=== PATIENT | female | born 1980 | race Caucasian/White ===

== ENCOUNTER 2020-03-05 08:23 | Emergency (ER) | payer BC, SELFPAY ==
[2020-03-05 08:25] VITALS: BP 167/98; PULSE 94; RESP 16; TEMP 36.8; O2SAT 97
--- NOTE | 2020-03-05 08:56 | ECG_ITS ---
Measurements Intervals [place] Rate: 81 P: 39 DC: 151 QRS: 22 QRSD: 102 T: 77 QT: 369 QTc: 429 Interpretive Statements SINUS RHYTHM BORDERLINE ST-T WAVE ABNORMALITY- HIGH LATERAL LEADS BORDERLINE ECG Electronically Signed On 03-05-2020 9:45:08 CDT by Orion Rivera D.O.
--- NOTE | 2020-03-05 08:58 | ED.GENADULT ---
HPI - General Adult General Chief complaint: Upper Respiratory Infection Stated complaint: cough felt like going to pass out Source: patient Mode of arrival: ambulatory History of Present Illness HPI narrative: Irina is a 39F with a PMH of seasonal allergies, obesity and CHF (resolved after she lost 100lbs intentionally) that presented to the ED with an episode of near syncope. She was quarantined for COVID exposure starting about 16 days ago. She got of quarantine a few days ago. However, 2 days ago she started having a dry cough. (she gets this every year around harvest time). She was gaving a coughing spell then felt lightheaded and had an episode of near syncope. She did not lose conscousness. No CP, palpitations, SOB, nausea or vomiting. No hematochezia, melena, hematuria, vaginal bleeding or dysuria. Related Data Home Medications Medication Instructions Recorded Confirmed prednisone 20 mg PO DAILY 03/05/20 03/05/20 Allergies Allergy/AdvReac Type Severity Reaction Status Date / Time No Known Allergies Allergy Unknown Unverified 10/14/06 13:25 Review of Systems Constitutional: Constitutional: Reports no additional constitutional complaints, Denies chills and Denies fever(s) Eyes: Eyes: Reports no additional eye complaints ENT: Reports nasal congestion Cardiovascular: Cardiovascular: Reports as per HPI Respiratory: Respiratory: Reports cough, Denies dyspnea and Denies wheezing Gastrointestinal: Gastrointestinal: Reports no additional gastrointestinal complaints Genitourinary: Genitourinary: Reports no additional female genitourinary complaints Musculoskeletal: Musculoskeletal: Reports no additional musculoskeletal complaints Integumentary/Breasts: Skin/Breast: Reports system reviewed and no additional complaints, except as docu Neurologic: Denies vertigo, Denies syncope and Denies focal weakness Psychiatric: Psychiatric: Reports no additional psychiatric complaints Endocrine: Endocrine: Reports no additional endocrine complaints Hematologic/Lymphatic: Hematologic/Lymphatic: Reports no additional hematologic/lymphatic complaints Allergic/Immunologic: Allergic/Immunologic: Reports no additional allergic/immunologic complaints [facility] Family History Family History Father Diabetes mellitus Patient's father is in good health Acute myocardial infarction, Onset Age: 60 Mother Carcinoma of colon Social History Social History Smoking status: Never smoker Exam Const: General: no acute distress and alert Orientation/consciousness: patient oriented x3 Limitations: No altered mental status HENMT: Head: normal to inspection Eyes: Conjunctivae: conjunctivae normal Pupils: Equal, round and reactive pupils present Neck: Neck: normal visual inspection Chest: Chest palpation & inspection: normal inspection of the chest Resp: Effort & Inspection: normal respiratory effort, not labored, no retractions and not tachypneic Auscultation: clear to auscultation bilaterally Cardio: Rate: regular rate Rhythm: regular rhythm Heart sounds: no murmurs GI: GI Palp: Yes Soft to palpation, No Tenderness to palpation present (GI) and No Guarding due to palpation present (GI) Skin: General skin exam: normal color Rashes: no rashes Neuro: General: patient oriented x3 and moves all extremities Extrem: General: normal to inspection Psych: Mental Status: mental status grossly normal Course Course Emergency Course: Irina was evaluated. Orderd labs, ekg and orthostatics. Orthostatics were unremarkable. EKG showed NSR with a rate of 81, no ST elevation/depression. labs showed slight hypokalemia, slight leukopenia but were otherwise unremarkable. Vital Signs Vital signs: Vital Signs Temperature 98.3 F 03/05/20 08:25 Pulse Rate 94 03/05/20 08:25 Respiratory Rate 16 03/05/20 08
[2020-03-05 09:03] VITALS: BP 157/96; PULSE 87
[2020-03-05 09:04] VITALS: BP 149/99; PULSE 92
[2020-03-05 09:05] VITALS: BP 153/100; PULSE 105
[2020-03-05 09:14] LABS: Basophils Absolute Auto 0.02 K/mm3 (0.00-0.10); Basophils Percent Auto 0.5 % (0.0-1.0); Hematocrit 38.7 % (35.0-49.0); Hemoglobin 12.8 g/dL (12.0-15.0); Immature Granulocyte Absolute 0.01 K/mm3 (0.00-0.00); Immature Granulocyte Percent A 0.3 % (0.0-0.0); Lymphocytes Absolute Auto 0.85 K/mm3 (1.10-4.50); Lymphocytes Percent Auto 21.5 % (18.0-42.0); Mean Corpuscular HGB Conc 33.1 g/dL (32.0-36.0); Mean Corpuscular Hemoglobin 27.6 pg (27.0-31.0); Mean Corpuscular Volume 83.4 fL (78.0-102.0); Mean Platelet Volume 11.6 fl (9.2-11.8); Monocytes Absolute Auto 0.24 K/mm3 (0.10-0.90); Monocytes Percent Auto 6.1 % (2.0-11.0); Neutrophils Absolute Auto 2.8 K/mm3 (1.7-7.2); Neutrophils Percent Auto 71.6 % (50.0-70.0); Platelet Count Result 180 K/mm3 (150-420); Red Blood Count 4.64 M/mm3 (4.20-5.40); Red Cell Distribution Width 12.7 % (11.6-14.4)
[2020-03-05 09:34] LABS: BNP 65.2 pg/mL (0-100)
[2020-03-05 09:36] LABS: Alanine Aminotransferase 21 U/L (14-59); Albumin Level 3.2 g/dL (3.4-5.0); Alkaline Phosphatase 47 U/L (46-116); Anion Gap 9 mmol/L (8-16); Aspartate Amino Transferase 17 U/L (15-37); Bilirubin,Total 0.4 mg/dL (0.00-1.00); Blood Urea Nitrogen 20 mg/dL (7-18); Calcium 8.6 mg/dL (8.5-10.1); Carbon Dioxide 29 mmol/L (21-32); Chloride 103 mmol/L (98-108); Estimated CRCL calculation 94 ml/min; Estimated Glomerular Filt Rate > 60; Glucose 98 mg/dL (70-99); Osmolality Calculated 294 mOsm/kg (285-295); Potassium 3.1 mmol/L (3.5-5.1); Sodium 141 mmol/L (136-145); Total Protein 7.5 g/dL (6.4-8.2)
[2020-03-05 09:39] LABS: Troponin I < 0.02 ng/mL (0.00-0.056)
[2020-03-05 10:10] VITALS: BP 124/93; PULSE 72; RESP 20; TEMP 37.1; O2SAT 98
== END 2020-03-05 10:16 | disposition home or self-care (01) ==
PROVIDERS: Emergency Provider Family Medicine; PCP Nurse Practitioner Family
DX: R55 Syncope and collapse (principal)
CPT/HCPCS: 36415; 80053; 83880; 84484; 85025; 93005; 99283; 99284

== ENCOUNTER 2022-08-25 08:27 | Emergency (ER) | payer BC, SELFPAY ==
[2022-08-25] VITALS (25 sets, daily range): BP systolic 138–161; BP diastolic 86–113; PULSE 77–115; RESP 16–20; TEMP 36.3–37; O2SAT 92–100
--- NOTE | ~2022-08-25 | XR_ITS ---
EXAMINATION: XR chest 1V portable DATE: 08/25/2022 09:09 INDICATION: Palpitations. Dizziness. TECHNIQUE: A single frontal view of the chest was obtained. COMPARISON: None. FINDINGS: Sensitivity is decreased by obesity. The chest demonstrates clear lungs without pneumonia, pleural effusion, or pneumothorax. The heart size is normal. IMPRESSION: 1. No acute cardiopulmonary disease. Reviewed, dictated and finalized at location A.
--- NOTE | 2022-08-25 08:46 | ED.ARRPALP ---
HPI - Arrhythmia/Palpitations General Chief Complaint: Arrhythmia/Palpitations Stated Complaint: Dizziness Time Seen by Provider: 08/25/22 08:44 Source: patient Mode of arrival: ambulatory Limitations: no limitations History of Present Illness HPI narrative: 41-year-old female with a history of obesity, negative stress test in 2019 with an EF of 61%, recurrent syncope, anxiety presents to the ER with -- palpitation. She felt her heart was jumping out of her chest. -- Dizziness, which is worse on standing up. -- Nausea without any vomiting. -- Transient shortness of breath which has resolved. Patient has had prior episodes of palpitation and syncope. No chest pain. Her symptoms started this morning. MD complaint: rapid heart beat Onset (ago): hour(s) ( Started 3 hours ago.) Duration: constant Severity: moderate Context: occurred during rest Associated symptoms: shortness of breath, near-syncope, nausea and anxiety Related Data Home Medications Medication Instructions Recorded Confirmed No Home Medications 08/25/22 08/25/22 Allergies Allergy/AdvReac Type Severity Reaction Status Date / Time No Known Allergies Allergy Unknown Unverified 08/25/22 09:28 Review of Systems Review of Systems: All systems reviewed & are unremarkable except as noted in HPI and below Constitutional: Constitutional: Reports as per HPI and Reports no additional constitutional complaints Eyes: Eyes: Reports as per HPI and Reports no additional eye complaints ENT: Reports system reviewed and no additional complaints, except as documented and Reports as per HPI Cardiovascular: Cardiovascular: Reports as per HPI and Reports no additional cardiovascular complaints Comments: Palpitation Respiratory: Respiratory: Reports as per HPI, Reports no additional respiratory complaints and Reports dyspnea Gastrointestinal: Gastrointestinal: Reports as per HPI and Reports no additional gastrointestinal complaints Genitourinary: Genitourinary: Reports no additional female genitourinary complaints Comments: status post BTL Musculoskeletal: Musculoskeletal: Reports no additional musculoskeletal complaints Integumentary/Breasts: Skin/Breast: Reports system reviewed and no additional complaints, except as docu and Reports as per HPI Neurologic: Reports system reviewed and no additional complaints, except as documented and Reports as per HPI Comments: anxiety Psychiatric: Psychiatric: Reports no additional psychiatric complaints, Reports as per HPI and Reports anxiety Endocrine: Endocrine: Reports no additional endocrine complaints and Reports as per HPI Hematologic/Lymphatic: Hematologic/Lymphatic: Reports no additional hematologic/lymphatic complaints and Reports as per HPI Allergic/Immunologic: Allergic/Immunologic: Reports no additional allergic/immunologic complaints and Reports as per HPI [facility] Past Medical History Medical History Anxiety Family History Family History Father Diabetes mellitus Patient's father is in good health Acute myocardial infarction, Onset Age: 60 Mother Carcinoma of colon Social History Social History Smoking status: Never smoker Exam Narrative: patient is not orthostatic. Blood pressure and heart rate show wide fluctuations Const: General: no acute distress Nutritional Appearance: obese Orientation/consciousness: patient oriented x3 Limitations: no limitations HENMT: Head: normal to inspection Ears: external ears normal Face/Nose/Sinus: Normal external nose present Face and sinus: normal facial exam Mouth: Yes Normal oral and palatal mucosa present Throat: posterior oropharynx normal Eyes: Conjunctivae: conjunctivae normal Pupils: Equal, round and reactive pupils present EOM: EOMs intact bilaterally Direct
--- NOTE | 2022-08-25 08:53 | ECG_ITS ---
Measurements Intervals [place] Rate: 93 P: ID: 0 QRS: 13 QRSD: 103 T: 57 QT: 355 QTc: 442 Interpretive Statements ATRIAL FIBRILLATION ABNORMAL ECG COMPARED TO ECG 03/05/2020 09:18:22 ATRIAL FIBRILLATION NOW PRESENT Electronically Signed On 08-25-2022 13:58:21 CDT by Tony Lara M.D.
[2022-08-25] MEDS: ALPRAZolam (*CRX) 0.5 MG TABLET 0.25 MG PO (09:02)
[2022-08-25] MEDS: METOPROLOL TARTRATE INJ 5 MG/5 ML VIAL IV PUSH (09:19)
[2022-08-25 09:21] LABS: Basophils Absolute Auto 0.04 K/mm3 (0.00-0.10); Basophils Percent Auto 0.7 % (0.0-1.0); Eosinophils Absolute Auto 0.03 K/mm3 (0.02-0.50); Eosinophils Percent Auto 0.5 % (1.0-6.0); Hemoglobin 8.9 g/dL (12.0-15.0); Immature Granulocyte Absolute 0.01 K/mm3 (0.00-0.00); Immature Granulocyte Percent A 0.2 % (0.0-0.0); Lymphocytes Percent Auto 22.5 % (18.0-42.0); Mean Corpuscular HGB Conc 28.7 g/dL (32.0-36.0); Mean Corpuscular Hemoglobin 20.3 pg (27.0-31.0); Mean Corpuscular Volume 70.8 fL (78.0-102.0); Mean Platelet Volume 10.1 fl (9.2-11.8); Monocytes Absolute Auto 0.37 K/mm3 (0.10-0.90); Monocytes Percent Auto 6.4 % (2.0-11.0); Neutrophils Percent Auto 69.7 % (50.0-70.0); Platelet Count Result 365 K/mm3 (150-420); Red Blood Count 4.38 M/mm3 (4.20-5.40); Red Cell Distribution Width 17.5 % (11.6-14.4); White Blood Count 5.8 K/mm3 (4.8-10.8)
[2022-08-25 09:36] LABS: Partial Thromboplastin Time 29.3 SEC (23.90-30.70); Prothrombin Time 11.1 Seconds (9.50-12.10)
[2022-08-25 09:39] LABS: D Dimer 0.24 mg/L (0.19-0.50)
[2022-08-25 09:42] LABS: Lactic Acid Reflex 1.4 mmol/L (0.4-2.0)
[2022-08-25 09:49] LABS: Alanine Aminotransferase 17 U/L (14-59); Albumin Level 3.4 g/dL (3.4-5.0); Alkaline Phosphatase 66 U/L (46-116); Anion Gap 10 mmol/L (8-16); Aspartate Amino Transferase 18 U/L (15-37); Bilirubin,Total 0.3 mg/dL (0.00-1.00); Blood Urea Nitrogen 12 mg/dL (7-18); Calcium 8.8 mg/dL (8.5-10.1); Carbon Dioxide 27 mmol/L (21-32); Chloride 102 mmol/L (98-108); Estimated CRCL calculation 133 ml/min; Estimated Glomerular Filt Rate > 60; Glucose 103 mg/dL (70-99); NT Pro B Type Natriuretic Pept 614 pg/mL (0-125); Osmolality Calculated 287 mOsm/kg (285-295); Potassium 3.5 mmol/L (3.5-5.1); Sodium 139 mmol/L (136-145); Thyroid Stimulating Hormone 4.93 uIU/mL (0.36-3.74); Total Protein 8.1 g/dL (6.4-8.2); Troponin I 17.6 ng/L (0.00-60.4)
[2022-08-25 10:08] LABS: Appearance Urine Clear (Clear); Bilirubin Urine Negative (Negative); Blood Urine 3+ (Negative); Color Urine Light Yellow (Yellow); Glucose Urine UA Negative (Negative); Ketones Urine Negative (Negative); Leukocyte Esterase Ur Negative LEU/UL (Negative); Nitrate Urine Negative (Negative); Protein Urine Negative (Negative); Specific Grav Ur 1.015 (1.010-1.020)
[2022-08-25 10:13] LABS: Add Urine Microscopic? YES
[2022-08-25 10:14] LABS: Bacteria Urine Trace /hpf; RBC Urine 21-50 /hpf (0-2); Squamous Epithelial Cell Urine Few /hpf (Few)
--- NOTE | 2022-08-25 13:14 | PC.NURSE ---
On 08/25/22, the student, [orion [email or web address]], provided care and completed [facility] documentation on this patient. I have reviewed the student's documentation and agree with the findings.
== END 2022-08-25 13:15 | disposition short-term general hospital (02) ==
PROVIDERS: Emergency Provider Internal Medicine Critical Care Medicine; PCP Nurse Practitioner Family
DX: F41.9 Anxiety disorder, unspecified (principal); I48.91 Unspecified atrial fibrillation; D50.8 Other iron deficiency anemias; R06.02 Shortness of breath
CPT/HCPCS: 36415; 71045; 80053; 81001; 83605; 83880; 84443; 84484; 85025; 85380; 85610; 85730; 93005; 96374; 99285; A9270

== ENCOUNTER 2022-08-25 13:59 | Inpatient (IN) | payer BC, SELFPAY ==
--- NOTE | ~2022-08-25 | XR_ITS ---
EXAMINATION: XR small bowel follow through DATE: 08/27/2022 15:50 INDICATION: Iron deficiency anemia. TECHNIQUE: Oral contrast was administered, and a time course of radiographs of the abdomen was obtain ed. Fluoroscopy of the small bowel was performed. Fluoroscopy exposure time was 0.2 minutes. The tota l number of images was 8. COMPARISON: None. FINDINGS: There is no abnormal mass or stricture. There are no dilated loops of bowel. Transit time from the st omach to proximal colon was approximately 15 minutes. Surgical clips in the right upper quadrant are likely from cholecystectomy. IMPRESSION: 1. Normal small bowel series. Reviewed, dictated and finalized at location A.
--- NOTE | 2022-08-25 14:08 | ECHO_ITS ---
Patient Info Name: Irina Seymour Age: 41 years : 1980 Gender: Female Ht: 62 in Wt: 283 lbs BSA: 2.45 m2 HR: 71 bpm BP: 154 / 98 mmHg Heart Rhythm: Sinus Rhythm Technical Quality: Fair Exam Date: 08/25/2022 3:18 PM Exam Location: [facility] Pulmonary Patient Status: Outpatient Admit Date: 08/25/2022 Staff Ordering Physician: Shikha Gary PA-C Supervisor [employer]: Ese Fernandes RDCS Attending Provider: Renny Goncalves MD Referring Physician: Cookie JOHNSON; Exam Type: CA echo dop color flow w con Study Info Indications - new onset atrial fibrillation Complete two-dimensional, color flow and Doppler transthoracic echocardiogram is performed with contrast to opacify the left ventricle and to improve the deliniation of the left ventricle endocardial borders. Contrast/Agitated Saline Contrast/Ag. Saline: Definity Amount: 3.00 ml Administered By: Ese Fernandes RDCS Existing IV Access: Yes IV Access Condition: patent with no signs of infiltration Summary 1. Left ventricular chamber dimension is normal. 2. Definity contrast administered improved wall motion interpretation. 3. Left ventricular systolic function is normal, estimated at 65-70%. 4. There is moderately increased left ventricular wall thickness. 5. The left ventricular diastolic function is abnormal. 6. E/e' 13 is mildly elevated. 7. No pulmonary hypertension, estimated pulmonary arterial systolic pressure is 22 mmHg. Left Ventricle E/e' 13 is mildly elevated. Definity contrast administered improved wall motion interpretation. Left ventricular chamber dimension is normal. Left ventricular systolic function is normal, estimated at 65-70%. There is moderately increased left ventricular wall thickness. The left ventricular diastolic function is abnormal. Right Ventricle Right ventricular systolic function is normal and with normal TAPSE 2.7 cm. Right ventricular chamber dimension is normal. Left Atria Left atrial chamber dimension is normal. Right Atria Right atrial chamber dimension is normal. Aortic Valve The aortic valve is trileaflet. There is no aortic valve stenosis. There is no aortic valve regurgitation. Pulmonic Valve There is no pulmonic regurgitation. Mitral Valve There is no mitral valve stenosis. There is no mitral valve regurgitation. Tricuspid Valve There is no tricuspid valve regurgitation. No pulmonary hypertension, estimated pulmonary arterial systolic pressure is 22 mmHg. Pericardium/Pleural There is no pericardial effusion. Inferior Vena Cava Normal inferior vena cava with >50% collapse upon inspiration consistent with normal right atrial pressure, 5 mmHg. Aorta The aortic root size at the sinus of Valsalva is normal. Left Ventricular Outflow Tract Name Value Normal LVOT 2D LVOT Diameter 2.01 cm LVOT Doppler LVOT Peak Gradient 7 mmHg LVOT Mean Gradient 4 mmHg LVOT VTI 26.63 cm LVOT VTI/AV VTI Ratio 0.55
[2022-08-25 14:23] VITALS: BP 154/98; PULSE 71; RESP 20; TEMP 35.9; O2SAT 100
[2022-08-25 14:29] VITALS: BMI 51.9
--- NOTE | 2022-08-25 14:35 | ADMGEN ---
This patient, Irina Seymour, was admitted to 3 [facility] Surg Room 302-01. Patient/family oriented to hospital policies and general routines including ID bracelet, bed and alarms, visiting hours, pain management, procedures, bathroom and other care routines, personal items, smoking policy, room service/diet, and visiting hours. Information on how to activate the Rapid Response Team has been discussed. Patient/Family are encouraged to report perceived risks to care and to ask questions if they do not understand what they are told or what they should do. Pt direct admit from [facility]. Report from Deborah.
--- NOTE | 2022-08-25 15:00 | PM.CNCAR ---
Assessment and Plan Assessment and plan (1) PAF (paroxysmal atrial fibrillation): Code(s): I48.0 - Paroxysmal atrial fibrillation Status: Acute Assessment and Plan: Probably due to untreated JIA. Spontaneously cardioverted. [id number]. Negative lexiscan myovew on 10/26/18. Obtain echo. Start Sotalol 80 mg every 12 hours. Check EKG 1-2 hours after each dose of Sotalol to check QT interval. Start Aspirin 325 mg daily. Anticipate 2 night stay. (2) Microcytic anemia: Code(s): D50.9 - Iron deficiency anemia, unspecified Status: Acute Assessment and Plan: Being worked up by hospitalist. (3) Morbid obesity: Code(s): E66.01 - Morbid (severe) obesity due to excess calories Status: Acute History of Present Illness History of Present Illness Consult date/time: 08/25/22 15:00 Reason For Visit: new onset afib Narrative: 41 yr old woman presents to [facility] ER with rapid heart rate. She has a history of obesity s/p gastric sleeve surgery in 2019, anxiety. She reports she felt palpitations with associated sob, dizziness so she went to [facility] and was diagnosed with new onset atrial fib at 140 bpm. She was given Metoprolol which slowed it down to 110 bpm and subsequently she cardioverted. Currently her symptoms have resolved. She can walk several blocks without any problems. Admits to having JIA but thinks it may have resolved after gastric sleeve surgery and losing 130 pounds. Admits to snoring, and some daytime sleepiness. Denies chest pain, orthopnea, PND, edema. Review of Systems Review of Systems: All systems reviewed & are unremarkable except as noted in HPI and below Constitutional: Constitutional: Reports as per HPI, Denies chills and Denies fever(s) Cardiovascular: Cardiovascular: Reports as per HPI, Denies chest pain and Reports irregular heart rhythm Respiratory: Respiratory: Reports dyspnea Gastrointestinal: Gastrointestinal: Reports as per HPI and Denies abdominal pain Genitourinary: Genitourinary: Reports as per HPI and Denies dysuria Musculoskeletal: Musculoskeletal: Reports as per HPI Neurologic: Reports as per HPI, Reports dizziness and Denies syncope [facility] Past Medical History Medical History (Updated 08/25/22 @ 15:05 by Orion Rivera DO) Anxiety Essential hypertension Morbid obesity Obstructive sleep apnea on CPAP Surgical History Surgical History (Updated 08/25/22 @ 14:17 by Shikha Gary PA-C) History of section History of laparoscopic cholecystectomy (~09/2006) History of tubal ligation Family History Family History Father Diabetes mellitus Acute myocardial infarction, Onset Age: 60 Patient's father is in good health Mother Carcinoma of colon Hypertension Grandparent Afib Social History Social History (Updated 08/25/22 @ 14:18 by Shikha Gary PA-C) Social History: Surrogate medical decision maker: Xavier Seymour, spouse. Code status: Full code. Smoking status: Never smoker Alcohol intake: never Substance use: never Lack of Transportation: No Lack of Food: Never True Current Housing: I Have Housing Concerned About Future Housing: No Difficulty Paying Gas/Electric Bills: No Difficulty Paying for Meds: No Currently Unemployed: No Education: Associate Degree Difficulty w/ Childcare or Family Care: No Spiritual care concerns: No Meds Home Medications and Allergies Home Medications Medication Instructions Recorded Confirmed Type No Home Medications 08/25/22 08/25/22 History Allergies Allergy/AdvReac Type Severity Reaction Status Date / Time No Known Allergies Allergy Unknown Verified 08/25/22 14:50 Vital Signs Vital Signs - 24 hr 08/25/22 14:23 Temperature 96.7 F L Pulse Rate 71 Respiratory Rate 20 Blood Pressure 154/98 H Pulse Oximetry 100 Exam Const: General: cooperative, he
--- NOTE | 2022-08-25 15:08 | ECG_ITS ---
Measurements Intervals [place] Rate: 62 P: 9 [place]: 167 QRS: 7 QRSD: 102 T: 46 QT: 451 QTc: 459 Interpretive Statements SINUS RHYTHM COMPARED TO ECG 08/25/2022 09:03:29 SINUS RHYTHM NOW PRESENT Electronically Signed On 08-26-2022 10:40:38 CDT by Kelly Troy M.D.
[2022-08-25 15:23] VITALS: O2SAT 100
[2022-08-25 15:48] LABS: Immature Reticulocyte Fraction 17.3 % (3.0-15.9); Reticulocyte Hemoglobin Conten 21.9 pg (28.2-35.7); Reticulocyte Percent 1.39 % (0.7-4.3); Reticulocytes Absolute 0.06 B/L (32.2-175.7)
[2022-08-25 16:00] VITALS: PULSE 70
[2022-08-25] MEDS: PERFLUTREN LIPID MICROSPHERES 1.5 ML VIAL DILUTED TO 10 ML TOTAL VOLUME IV PUSH (16:10)
--- NOTE | 2022-08-25 16:36 | IVDEFINITY ---
Prior to administration of IV Definity the patient was educated on the risks and benefits of the imaging enhancing agent including potential adverse side effects. The patient verbalized understanding. Allergies were verified. No exclusion criteria were identified and at least one of the following inclusion criteria were met: 1) physician request, 2) patient technically difficult to image (per the [place] [employer] guidelines of two or more segments not discernable within the apical view), or 3) questionable left ventricular function. ?
[2022-08-25 17:17] LABS: Folic Acid 13.3 ng/mL (2.76->20)
[2022-08-25 17:27] LABS: Iron 16 ug/dL (37-170)
[2022-08-25 17:33] LABS: Percent Iron Saturation 4 % (20-50)
[2022-08-25 17:52] LABS: Free T4 Free Thyroxine 1.54 ng/mL (0.78-2.19)
[2022-08-25 18:18] LABS: Ferritin 4.34 ng/mL (6.24-137)
[2022-08-25 19:59] LABS: IFOB Positive Control Positive; Immunochemical Fecal Occult Bl Positive (N)
[2022-08-25 20:00] VITALS: PULSE 70; PULSE 75; RESP 20; O2SAT 100
[2022-08-25] MEDS: SOTALOL HCL 80 MG TABLET PO (21:05)
[2022-08-25 21:41] VITALS: BP 139/93; PULSE 81; RESP 16; TEMP 36.1; O2SAT 100
[2022-08-26] VITALS (12 sets, daily range): BP systolic 145–165; BP diastolic 87–96; PULSE 52–67; RESP 15–22; TEMP 36.1–36.7; O2SAT 95–100
[2022-08-26 06:35] LABS: Hemoglobin 8.8 g/dL (12.0-15.0); Mean Corpuscular HGB Conc 28.4 g/dl (32-36); Mean Corpuscular Hemoglobin 20.4 pg (26-34); Mean Corpuscular Volume 71.9 fl (80-100); Mean Platelet Volume 10.2 fl (7.4-10.4); Platelet Count Result 389 k/mm3 (150-375); Red Blood Count 4.31 M/mm3 (4.2-5.4); Red Cell Distribution Width 17.8 % (11.5-14.5); White Blood Count 5.2 K/mm3 (4.5-10.0)
[2022-08-26 06:45] LABS: Anion Gap 8 mmol/L (8-16); Blood Urea Nitrogen 14 mg/dL (7-17); Carbon Dioxide 27 mmol/L (22-30); Chloride 103 mmol/L (98-107); Estimated CRCL calculation 157 ml/min; Estimated Glomerular Filt Rate > 60; Glucose 96 mg/dL (65-110); Magnesium 2.3 mg/dL (1.6-2.3); Potassium 3.6 mmol/L (3.4-5.0); Sodium 138 mmol/L (137-145)
--- NOTE | 2022-08-26 07:26 | PM.IMPN ---
Progress Note: A&P Assessment and Plan (1) New onset atrial fibrillation: Code(s): I48.91 - Unspecified atrial fibrillation Status: Acute Assessment and Plan: Likely secondary to untreated JIA. She states she has not had any symptoms (no heavy snoring, paroxysmal nocturnal dyspnea, or hypersomnolence) since losing 150 lb following gastric sleeve in April 2019 nd has not been using her CPAP in the past year. NSR on telemetry. Continue to monitor telemetry. Cardiology consulted and appreciate recommendations. Sotalol 80 mg PO BID started on 08/25/20. Monitor QTc daily and 466 today 08/26/22 (was 459 on 08/25/22). CHADS-VASc score 1. ASA 325 mg PO daily started, however, this is on hold due to anemia and +FOBT. Will resume if GI work-up negative. (2) Microcytic anemia: Code(s): D50.9 - Iron deficiency anemia, unspecified Status: Acute Assessment and Plan: Patient denies heavy periods. history of gastric sleeve. Her mother had colorectal cancer at the age 40 without prior colonoscopy performed. No stool changed noted per patient. stool for occult positive. Repeat FOBT x1. Iron studies- serum iron, saturation and ferritin low, TIBC high normal. Started on ferrous sulfate 325 mg PO daily started. B12 233. start oral B12 1000 mcg. Secondary to GI surgery. folate within normal limits GI consulted and appreciate recommendations. Trend H/H (3) Essential hypertension: Code(s): I10 - Essential (primary) hypertension Status: Chronic Assessment and Plan: No longer on medication following weight loss surgery. Blood pressures 139-150/80-90s. Monitor closely and consider resuming antihypertensives if consistently elevated. (4) Obstructive sleep apnea on CPAP: Code(s): G47.33 - Obstructive sleep apnea (adult) (pediatric); Z99.89 - Dependence on other enabling machines and devices Status: Acute Assessment and Plan: No longer wearing CPAP after weight loss surgery as above. Apnea link AHI 70.4 with significant desaturation, with lowest 62%. Discussed results with patient and recommend resuming cpap. She is in the process of referral to a new Concession Supervisor. Add auto-titrate cpap overnight while inpatient. Plan CODE STATUS: FULL CODE Disposition: from home. Subjective Date/time seen: 08/26/22 07:26 She denies chest pain, SOB, palpitations, dizziness, fatigue, abdominal pain, nausea or vomiting. She reports semi-loose stool today. No melena, hematochezia, or emesis. She denies h/o hemorrhoids or known anemia, although she does endorse taking supplements after gastric sleeve surgery. She states her mother was diagnosed with colon cancer at age 40 and has never had a colonoscopy. FOBT was positive. She endorses being at the end of her menstrual cycle with sporadic bleeding noted. Menstrual cycles are not heavy. Review of Systems Review of Systems: All systems reviewed & are unremarkable except as noted in HPI and below Exam Narrative: General: Well-developed, nontoxic-appearing female sitting up in bed in no acute distress. HEENT: Normocephalic. PERRL, EOMI. Sclera anicteric. Oral mucosa moist. Neck: Supple. No obvious JVD. Respiratory: Lungs are clear to auscultation bilaterally. RR regular and unlabored. Cardiovascular: Regular rate and rhythm with S1-S2. No murmurs, gallops or rubs. Gastrointestinal: Abdomen is soft, obese, nontender, and nondistended with positive bowel sounds. Skin: Warm and dry. No rash or lesions on limited exam. Extremities: No cyanosis, clubbing, or edema. Radial and pedal pulses +2 bilaterally. Neurological: Alert and oriented x4. Cranial nerves 2-12 are grossly intact. No gross focal deficits to casual conversation. Psychiatric: Pleasant and cooperative with normal mood and affect. Objective Data Vital Signs Vital Signs: Vital Signs - 24 hr 08/25/22 14:23 08/25/22 15:23 08/25/22 16:00 Temperature 96.7 F
[2022-08-26] MEDS: ASPIRIN 325 MG ENTERIC TABLET PO (08:43)
[2022-08-26] MEDS: SOTALOL HCL 80 MG TABLET PO ×2 (08:43→21:06)
[2022-08-26] MEDS: CYANOCOBALAMIN 1,000 MCG TABLET 1000 MCG PO (08:43)
[2022-08-26] MEDS: FERROUS SULFATE 324 MG TABLET PO (08:43)
[2022-08-26] MEDS: PANTOPRAZOLE SODIUM IV 40 MG VIAL IV PUSH ×2 (08:44→21:06)
--- NOTE | 2022-08-26 09:00 | PM.IMHP ---
H&P: HPI History of Present Illness Date/Time: 08/25/22 14:30 Chief Complaint: New onset atrial fibrillation. Narrative: This is a pleasant 41-year-old female who presented to the emergency department at the [facility] earlier this morning for evaluation of palpitations. She got up around 05:30 to get her children ready for school and she noticed that her heart felt like it was racing at that time. She went back to bed and about an hour and half thereafter she got up for the day. She was still not feeling well and describes feelings of anxiety, racing heart, palpitations, mild shortness of breath, dizziness, nausea, anxiety, and near-syncope. After speaking with her she decided to come in for evaluation. On arrival to the ER her heart rate was in the 90s to low 100s and she was found to be in atrial fibrillation which is a new diagnosis for her. She was given metoprolol 2.5 mg IV and she has since converted to a normal sinus rhythm. Her labs were significant for a microcytic anemia (hemoglobin 8.9, hematocrit 31%, MCV 70.8), TSH 4.93, proBNP 614, and normal CMP and troponin. Chest x-ray was unremarkable. Transfer was initiated to this facility for Cardiology consultation with Dr. Rivera. At the time my evaluation she is resting comfortably and has no complaints. She has no prior history of cardiac dysrhythmia and she has never had similar symptoms in the past. She has sleep apnea and wore CPAP for many years however she lost 150 lb following gastric sleeve in April 2019 and she no longer has symptoms of sleep apnea and is thus no longer using the CPAP. She quit drinking soda long ago and does not use alcohol. She does report increased stress in the last 1 week as her [id number]-ern and she has had some work stress as well. Regarding the anemia, she has no known history of anemia. Following the gastric sleeve she was on supplements but has not been on any vitamin since that time. Her periods are not heavy and they typically last 4 days, occurring every 28 to 30 days. She has not noticed any bright red blood or dark stools. She has never had a colonoscopy though her mom was diagnosed with colorectal cancer at the age of 40. She does have occasional GERD symptoms but nothing significant. She takes 1 Excedrin tablet perhaps every 2 weeks for headaches. No other NSAID use. Review of Systems Review of Systems: Twelve systems were reviewed and are negative except for as per HPI. [facility] Past Medical History Medical History Anxiety Essential hypertension Morbid obesity Obstructive sleep apnea on CPAP No longer using CPAP following 150 lb weight loss. Surgical History Surgical History History of section History of laparoscopic cholecystectomy (09/2006) History of tubal ligation History of weight loss surgery (04/2019) Gastric sleeve. Family History Family History Father Diabetes mellitus Acute myocardial infarction, Onset Age: 60 Patient's father is in good health Mother Carcinoma of colon Hypertension Grandparent Afib Social History Social History Social History: Surrogate medical decision maker: Xavier Seymour, spouse. Code status: Full code. Smoking status: Never smoker Alcohol intake: never Substance use: never Lack of Transportation: No Lack of Food: Never True Current Housing: I Have Housing Concerned About Future Housing: No Difficulty Paying Gas/Electric Bills: No Difficulty Paying for Meds: No Currently Unemployed: No Education: Associate Degree Difficulty w/ Childcare or Family Care: No Spiritual care concerns: No Meds Home Medications and Allergies Home Medications Medication Instructions Recorded Keren
--- NOTE | 2022-08-26 09:34 | PM.PNCARD ---
Progress Note: A&P Assessment and Plan (1) PAF (paroxysmal atrial fibrillation): Code(s): I48.0 - Paroxysmal atrial fibrillation Status: Acute Assessment and Plan: Probably due to untreated JIA. Spontaneously cardioverted. [id number]. Negative lexiscan myovew on 10/26/18. 08/25/22 Echo: EF 65-70%, mod LVH, diastolic dysfunction (E/e' 13). Started Sotalol 80 mg every 12 hours on 08/25/22. Check EKG 1-2 hours after each dose of Sotalol to check QT interval. Started Aspirin 325 mg daily. Anticipate 1 more night stay. (2) Microcytic anemia: Code(s): D50.9 - Iron deficiency anemia, unspecified Status: Acute Assessment and Plan: Being worked up by hospitalist. (3) Morbid obesity: Code(s): E66.01 - Morbid (severe) obesity due to excess calories Status: Acute Subjective Date/time seen: 08/26/22 09:34 Interval history: Denies chest pain or sob. Exam Const: General: cooperative, healthy appearing and comfortable Orientation/consciousness: oriented to person, oriented to place and oriented to time Resp: Auscultation: clear to auscultation bilaterally, no crackles, no rales, no rhonchi and no wheezes Cardio: Rate: regular rate Rhythm: regular rhythm Heart sounds: no murmurs Peripheral pulses: dorsalis pedis present Neuro: General: oriented to person, oriented to place and oriented to time Extrem: Right lower extremity: no edema Left lower extremity: no edema Objective Data Vital Signs Vital Signs: Vital Signs - 24 hr 08/25/22 14:23 08/25/22 15:23 08/25/22 16:00 Temperature 96.7 F L Pulse Rate 71 70 Respiratory Rate 20 Blood Pressure 154/98 H Pulse Oximetry 100 100 Oxygen Delivery Room Air 08/25/22 20:00 08/25/22 21:41 08/25/22 20:00 Temperature 97 F L Pulse Rate 70 81 75 Respiratory Rate 20 16 Blood Pressure 139/93 H Pulse Oximetry 100 100 Oxygen Delivery Room Air 08/26/22 00:00 08/26/22 04:00 08/26/22 05:38 Temperature 98.1 F Pulse Rate 52 L 64 61 Respiratory Rate 18 Blood Pressure 165/87 H Pulse Oximetry 97 Oxygen Delivery 04/06/23 06:17 08/26/22 08:43 Temperature Pulse Rate 67 Respiratory Rate Blood Pressure Pulse Oximetry 97 Oxygen Delivery Intake/Output Intake/Output: Intake & Output 08/23/22 08/24/22 08/25/22 08/26/22 23:59 23:59 23:59 23:59 Intake Total 440 Balance 440 Meds/Results Medications: Active Medications Generic Name Dose Route Start Last Admin Trade Name Johann PRN Reason Stop Dose Admin Aspirin 325 mg 08/26/22 09:00 08/26/22 08:43 Aspirin 325 Mg Enteric Tablet PO 325 mg QAM MOIRA Administration Cyanocobalamin 1,000 mcg 08/26/22 09:00 08/26/22 08:43 Cyanocobalamin 1,000 Mcg Tablet PO 1,000 mcg QAM MOIRA Administration Ferrous Sulfate 324 mg 08/26/22 08:00 08/26/22 08:43 Ferrous Sulfate 324 Mg Tablet PO 324 mg DAILY@0800 MOIRA Administration Pantoprazole Sodium 40 mg 08/26/22 09:00 08/26/22 08:44 Pantoprazole Sodium Iv 40 Mg Vial IV PUSH 40 mg Q12HR MOIRA Administration Perflutren Lipid Microsphere 0 ml 08/25/22 14:08 Perflutren Lipid Microspheres 1.5 Ml Vial Diluted To 10 Ml Total Volume IV PUSH 08/27/22 14:08 ONCE PRN adequate visualization Protocol Sotalol HCl 80 mg 08/25/22 21:00 08/26/22 08:43 Sotalol Hcl 80 Mg Tablet PO 80 mg Q12HR MOIRA Administration Labs Labs: Laboratory Results - last 24 hr 08/25/22 08/25/22 08/25/22 15:22 15:22 15:22 WBC RBC Hgb Hct MCV MCH MCHC RDW Plt Count MPV Absolute Retic 0.06 L Percent Retic 1.39 Immature Retic Fraction 17.3 H Retic Hgb Content 21.9 L Sodium Potassium Chloride Carbon Dioxide Anion Gap BUN Creatinine Estim Creat Clear Calc Estimated GFR Glucose Calcium Magnesium Iron 16 L TIBC 411 % Saturation 4 L Ferritin 4.34 L V
--- NOTE | 2022-08-26 11:00 | ECG_ITS ---
Measurements Intervals [place] Rate: 57 P: 9 AL: 165 QRS: 7 QRSD: 109 T: 37 QT: 476 QTc: 466 Interpretive Statements SINUS BRADYCARDIA COMPARED TO ECG 08/25/2022 22:22:09 SINUS BRADYCARDIA NOW PRESENT Electronically Signed On 08-26-2022 14:22:15 CDT by Kelly Troy M.D.
[2022-08-26] MEDS: PEG (High)/E-LYTE SOLN 4,000 ML BTL 4000 ML PO (16:21)
[2022-08-27] VITALS (14 sets, daily range): BP systolic 127–168; BP diastolic 72–99; PULSE 49–72; RESP 18–22; TEMP 36.2–36.6; O2SAT 97–100
[2022-08-27 06:38] LABS: Hematocrit 30.1 % (37.0-47.0); Hemoglobin 8.5 g/dL (12.0-15.0); Mean Corpuscular HGB Conc 28.2 g/dl (32-36); Mean Corpuscular Hemoglobin 20.5 pg (26-34); Mean Corpuscular Volume 72.5 fl (80-100); Mean Platelet Volume 10.2 fl (7.4-10.4); Platelet Count Result 331 k/mm3 (150-375); Red Blood Count 4.15 M/mm3 (4.2-5.4); Red Cell Distribution Width 17.9 % (11.5-14.5); White Blood Count 4.9 K/mm3 (4.5-10.0)
[2022-08-27 06:46] LABS: Anion Gap 6 mmol/L (8-16); Blood Urea Nitrogen 19 mg/dL (7-17); Carbon Dioxide 31 mmol/L (22-30); Chloride 102 mmol/L (98-107); Estimated CRCL calculation 134 ml/min; Estimated Glomerular Filt Rate > 60; Glucose 92 mg/dL (65-110); Magnesium 2.3 mg/dL (1.6-2.3); Potassium 3.8 mmol/L (3.4-5.0); Sodium 139 mmol/L (137-145)
[2022-08-27 06:49] LABS: INR 1.3; Prothrombin Time 15.4 Seconds (11.1-14.7)
[2022-08-27 06:50] LABS: Partial Thromboplastin Time 31.9 SECONDS (22.3-36.8)
--- NOTE | 2022-08-27 07:59 | PM.PNCARD ---
Progress Note: A&P Assessment and Plan (1) PAF (paroxysmal atrial fibrillation): Code(s): I48.0 - Paroxysmal atrial fibrillation Status: Acute Assessment and Plan: Probably due to untreated JIA. Spontaneously cardioverted. [id number]. Negative lexiscan myovew on 10/26/18. 08/25/22 Echo: EF 65-70%, mod LVH, diastolic dysfunction (E/e' 13). On Sotalol 80 mg every 12 hours started on 08/25/22. Check EKG 1-2 hours after each dose of Sotalol to check QT interval which are OK. On Aspirin 325 mg daily. Tolerating Sotalol well. No further cardiac workup. Upon discharge have her f/u with me in 1 week. (2) Microcytic anemia: Code(s): D50.9 - Iron deficiency anemia, unspecified Status: Acute Assessment and Plan: Being worked up by hospitalist. She is going for endoscopy today. (3) Morbid obesity: Code(s): E66.01 - Morbid (severe) obesity due to excess calories Status: Acute Subjective Date/time seen: 08/27/22 07:59 Interval history: Denies chest pain or sob. Exam Const: General: cooperative, healthy appearing and comfortable Orientation/consciousness: oriented to person, oriented to place and oriented to time Resp: Auscultation: clear to auscultation bilaterally, no crackles, no rales, no rhonchi and no wheezes Cardio: Rate: regular rate Rhythm: regular rhythm Heart sounds: no murmurs Peripheral pulses: dorsalis pedis present Neuro: General: oriented to person, oriented to place and oriented to time Extrem: Right lower extremity: no edema Left lower extremity: no edema Objective Data Vital Signs Vital Signs: Vital Signs - 24 hr 08/26/22 08:43 08/26/22 08:00 08/26/22 12:00 Temperature Pulse Rate 67 60 61 Respiratory Rate Blood Pressure Pulse Oximetry Oxygen Delivery 08/26/22 14:00 08/26/22 16:00 08/26/22 20:00 Temperature 97.2 F L Pulse Rate 62 63 63 Respiratory Rate 22 H 22 H Blood Pressure 145/96 H Pulse Oximetry 98 98 Oxygen Delivery Room Air 08/26/22 21:21 08/26/22 23:20 04/06/23 20:00 Temperature 97 F L Pulse Rate 63 56 L 66 Respiratory Rate 16 15 Blood Pressure 154/96 H Pulse Oximetry 100 95 Oxygen Delivery Autopap 08/27/22 00:00 08/27/22 04:00 08/27/22 05:39 Temperature 98 F Pulse Rate 59 L 49 L 59 L Respiratory Rate 18 Blood Pressure 127/99 H Pulse Oximetry 98 Oxygen Delivery Intake/Output Intake/Output: Intake & Output 08/24/22 08/25/22 08/26/22 08/27/22 23:59 23:59 23:59 23:59 Intake Total 440 540 Balance 440 540 Meds/Results Medications: Active Medications Generic Name Dose Route Start Last Admin Trade Name Freq PRN Reason Stop Dose Admin Aspirin 325 mg 08/26/22 09:00 08/26/22 08:43 Aspirin 325 Mg Enteric Tablet PO 325 mg QAM [facility] Administration Cyanocobalamin 1,000 mcg 08/26/22 09:00 08/26/22 08:43 Cyanocobalamin 1,000 Mcg Tablet PO 1,000 mcg QAM [facility] Administration Ferrous Sulfate 324 mg 08/26/22 08:00 08/26/22 08:43 Ferrous Sulfate 324 Mg Tablet PO 324 mg DAILY@0800 [facility] Administration Pantoprazole Sodium 40 mg 08/26/22 09:00 08/26/22 21:06 Pantoprazole Sodium Iv 40 Mg Vial IV PUSH 40 mg Q12HR MOIRA Administration Sotalol HCl 80 mg 08/25/22 21:00 08/26/22 21:06 Sotalol Hcl 80 Mg Tablet PO 80 mg Q12HR MOIRA Administration Labs Labs: Laboratory Results - last 24 hr 08/27/22 08/27/22 08/27/22 06:02 06:02 06:02 WBC 4.9 RBC 4.15 L Hgb 8.5 L Hct 30.1 L MCV 72.5 L MCH 20.5 L MCHC 28.2 L RDW 17.9 H Plt Count 331 MPV 10.2 PT 15.4 H INR 1.3 APTT 31.9 Sodium 139 Potassium 3.8 Chloride 102 Carbon Dioxide 31 H Anion Gap 6 L BUN 19 H Creatinine 0.60 L Estim Creat Clear Calc 134 Estimated GFR > 60 Glucose 92 Calcium 9.0 Magnesium 2.3 Amg Follow-up Billing Hospital Follow-up Hospital Follow-up: [id number] [facility]
--- NOTE | 2022-08-27 09:51 | WPDGICN ---
Assessment and Plan Assessment and plan (1) TAMARA (iron deficiency anemia): Code(s): D50.9 - Iron deficiency anemia, unspecified Status: Acute Assessment and Plan: Patient with iron deficiency anemia and also found to have occult blood in stool. Plan for colonoscopy and EGD to assess more thoroughly. This will be performed prior to considering any possible anticoagulation for the patient. Further recommendations will be given after endoscopy. Iron replacement is subsequently recommended. (2) Occult blood in stools: Code(s): R19.5 - Other fecal abnormalities Status: Acute (3) New onset atrial fibrillation: Code(s): I48.91 - Unspecified atrial fibrillation Status: Acute (4) Morbid obesity: Code(s): E66.01 - Morbid (severe) obesity due to excess calories Status: Acute GI Consult Note Consult date/time: 08/27/22 09:51 Reason for consult: Occult blood in stool and iron deficiency anemia. HPI: Irina Seymour is a 41 year old female I am asked to see at the request of the hospitalist service. Patient experience palpitations at work. Found to have atrial fibrillation. Heart rate is now been controlled and converted to normal sinus rhythm. She remains on aspirin. laboratory workup revealed patient to have iron deficiency anemia. For this reason I have been consulted. Stool Hemoccult was found to be positive. Patient denies any obvious blood in his stools. She has never previously had GI evaluation. No specific GI pathology noted in the family. Review of Systems Review of Systems: Review of systems noncontributory. [facility] Past Medical History Medical History (Updated 08/27/22 @ 09:53 by Tu Adams MD) Anxiety Essential hypertension Morbid obesity Obstructive sleep apnea on CPAP No longer using CPAP following 150 lb weight loss. Surgical History Surgical History (Updated 08/25/22 @ 22:20 by Shikha Gary PA-C) History of section History of laparoscopic cholecystectomy (09/2006) History of tubal ligation History of weight loss surgery (04/2019) Gastric sleeve. Family History Family History Father Diabetes mellitus Acute myocardial infarction, Onset Age: 60 Patient's father is in good health Mother Carcinoma of colon Hypertension Grandparent Afib Social History Social History Social History: Surrogate medical decision maker: Xavier Seymour, spouse. Code status: Full code. Smoking status: Never smoker Alcohol intake: never Substance use: never Lack of Transportation: No Lack of Food: Never True Current Housing: I Have Housing Concerned About Future Housing: No Difficulty Paying Gas/Electric Bills: No Difficulty Paying for Meds: No Currently Unemployed: No Education: Associate Degree Difficulty w/ Childcare or Family Care: No Spiritual care concerns: No Meds Home Medications and Allergies Home Medications Medication Instructions Recorded Confirmed Type No Home Medications 08/25/22 08/25/22 History Allergies Allergy/AdvReac Type Severity Reaction Status Date / Time No Known Allergies Allergy Unknown Verified 08/25/22 14:50 Vital Signs Vital Signs - 24 hr 08/26/22 12:00 08/26/22 14:00 08/26/22 16:00 Temperature 97.2 F L Pulse Rate 61 62 63 Respiratory Rate 22 H Blood Pressure 145/96 H Pulse Oximetry 98 Oxygen Delivery 08/26/22 20:00 08/26/22 21:21 08/26/22 23:20 Temperature 97 F L Pulse Rate 63 63 56 L Respiratory Rate 22 H 16 15 Blood Pressure 154/96 H Pulse Oximetry 98 100 95 Oxygen Delivery Room Air Autopap 08/26/22 20:00 08/27/22 00:00 08/27/22 04:00 Temperature Pulse Rate 66 59 L 49 L Respiratory Rate Blood Pressure Pulse Oximetry Oxygen Delivery 08/27/22 05:39 Temperature 9
[2022-08-27] MEDS: LACTATED RINGERS 1,000 ML 150 ML IV CONT (13:29)
--- NOTE | 2022-08-27 13:30 | WPDANESEPPF ---
Anes - Initial Pre Proc Eval Procedure: Operation Date: 08/27/22 14:15 Proposed Procedures p Esophagogastroduodenoscopy & Colonoscopy - Tu Adams MD Date/Time: 08/27/22 13:30 Surgeon: Renny Goncalves MD Pre Op Diagnosis: new onset afib Patient Data Age: 41 Gender: F Height: 1.57 m Weight: 128.735 kg Last Vital Signs Temp 97.1 F L 08/27/22 13:15 Pulse 64 08/27/22 13:15 Resp 19 08/27/22 13:15 BP 157/97 H 08/27/22 13:15 Pulse Ox 100 08/27/22 13:15 O2 Del Method Room Air 08/27/22 13:15 Allergies Allergy/AdvReac Type Severity Reaction Status Date / Time No Known Allergies Allergy Unknown Verified 08/27/22 13:12 Home Medications Medication Instructions Recorded Confirmed Type No Home Medications 08/25/22 08/25/22 History Laboratory Tests 08/27/22 08/27/22 08/27/22 06:02 06:02 06:02 WBC 4.9 K/mm3 K/mm3 (4.5-10.0) RBC 4.15 M/mm3 L M/mm3 (4.2-5.4) Hgb 8.5 g/dL L g/dL (12.0-15.0) Hct 30.1 % L % (37.0-47.0) MCV 72.5 fl L fl (80-100) MCH 20.5 pg L pg (26-34) MCHC 28.2 g/dl L g/dl (32-36) RDW 17.9 % H % (11.5-14.5) Plt Count 331 k/mm3 k/mm3 (150-375) MPV 10.2 fl fl (7.4-10.4) PT 15.4 Seconds H Seconds (11.1-14.7) INR 1.3 APTT 31.9 SECONDS SECONDS (22.3-36.8) Sodium 139 mmol/L mmol/L (137-145) Potassium 3.8 mmol/L mmol/L (3.4-5.0) Chloride 102 mmol/L mmol/L (98-107) Carbon Dioxide 31 mmol/L H mmol/L (22-30) Anion Gap 6 mmol/L L mmol/L (8-16) BUN 19 mg/dL H mg/dL (7-17) Creatinine 0.60 mg/dL L mg/dL (0.7-1.0) Estim Creat Clear Calc 134 ml/min ml/min Estimated GFR > 60 (59 - ) Glucose 92 mg/dL mg/dL (65-110) Calcium 9.0 mg/dL mg/dL (8.4-10.2) Magnesium 2.3 mg/dL mg/dL (1.6-2.3) Patient hx anesthesia problems: none Family hx anesthesia problems: none Results Review: All pre-operative results and documents have been reviewed as part of the pre-operative evaluation. [facility] Past Medical History Medical History (Updated 08/27/22 @ 09:53 by Tu Adams MD) Anxiety Essential hypertension Morbid obesity Obstructive sleep apnea on CPAP No longer using CPAP following 150 lb weight loss. Surgical History Surgical History (Updated 08/25/22 @ 22:20 by Shikha Gary PA-C) History of section History of laparoscopic cholecystectomy (09/2006) History of tubal ligation History of weight loss surgery (04/2019) Gastric sleeve. Family History Family History Father Diabetes mellitus Acute myocardial infarction, Onset Age: 60 Patient's father is in good health Mother Carcinoma of colon Hypertension Grandparent Afib Social History Social History Social History: Surrogate medical decision maker: Xavier Seymour, spouse. Code status: Full code. Smoking status: Never smoker Alcohol intake: never Substance use: never Lack of Transportation: No Lack of Food: Never True Current Housing: I Have Housing Concerned About Future Housing: No Difficulty Paying Gas/Electric Bills: No Difficulty Paying for Meds: No Currently Unemployed: No Education: Associate Degree Difficulty w/ Childcare or Family Care: No Spiritual care concerns: No Anes - Eval Final PreProcedure Day of Procedure 08/27/22 13:30 Patient weight: super morbidly obese Heart: regular rate and rhythm Lungs: clear to auscultation Airway: Mallampati scale class II Neurological: alert and oriented Last oral intake: >/= 8 hours ASA classification: IV Emergent: no Anesthetic plan: proceed Anesthesia type and monitoring: general GIVS and standa
--- NOTE | 2022-08-27 14:07 | SUR.OPER ---
EGD: [id number] COLON: [id number]
--- NOTE | 2022-08-27 14:55 | SUR.PHASEII ---
Patient being transported to X-ray from GI for test. Floor nurse made aware.
--- NOTE | 2022-08-27 16:24 | PM.IMPN ---
Progress Note: A&P Assessment and Plan (1) New onset atrial fibrillation: Code(s): I48.91 - Unspecified atrial fibrillation Status: Acute Assessment and Plan: Likely secondary to untreated JIA. She states she has not had any symptoms (no heavy snoring, paroxysmal nocturnal dyspnea, or hypersomnolence) since losing 150 lb following gastric sleeve in April 2019 nd has not been using her CPAP in the past year. NSR/SB on telemetry. Continue to monitor telemetry. Cardiology consulted and appreciate recommendations. Sotalol 80 mg PO BID started on 08/25/20. Monitor QTc daily and 466 today 08/26/22 (was 459 on 08/25/22). CHADS-VASc score 1. ASA 325 mg PO daily started, however, this is on hold due to anemia and +FOBT. Will resume if GI work-up negative. (2) Microcytic anemia: Code(s): D50.9 - Iron deficiency anemia, unspecified Status: Acute Assessment and Plan: Patient denies heavy periods. history of gastric sleeve. Her mother had colorectal cancer at the age 40 without prior colonoscopy performed. No stool changed noted per patient. stool for occult positive. Repeat FOBT x1. Iron studies- serum iron, saturation and ferritin low, TIBC high normal. Started on ferrous sulfate 325 mg PO daily started. B12 233. start oral B12 1000 mcg. Secondary to GI surgery presumably. folate within normal limits GI consulted and appreciate recommendations. EGD and colonoscopy today Trend H/H (3) Essential hypertension: Code(s): I10 - Essential (primary) hypertension Status: Chronic Assessment and Plan: No longer on medication following weight loss surgery. Blood pressures 139-150/80-90s. Monitor closely and consider resuming antihypertensives if consistently elevated. (4) Obstructive sleep apnea on CPAP: Code(s): G47.33 - Obstructive sleep apnea (adult) (pediatric); Z99.89 - Dependence on other enabling machines and devices Status: Acute Assessment and Plan: No longer wearing CPAP after weight loss surgery at home. Apnea link AHI 70.4 with significant desaturation, with lowest 62%. Discussed results with patient and recommend resuming cpap. She is in the process of referral to a new Onsite Health Coach. Add auto-titrate cpap overnight while inpatient. Plan CODE STATUS: FULL CODE Disposition: from home. Time Spent With Patient Time with patient: 15 - 25 minutes Subjective Date/time seen: 08/27/22 16:24 She reports no new complaints aside from having to drink Go-lytely prep last night in preparation for colonoscopy and EGD today. She states her stool is clear. No chest pain, SOB, dizziness, palpitations. Review of Systems Review of Systems: All systems reviewed & are unremarkable except as noted in HPI and below Exam Narrative: General: Well-developed, nontoxic-appearing female sitting up in bed in no acute distress. HEENT: Normocephalic. PERRL, EOMI. Sclera anicteric. Oral mucosa moist. Neck: Supple. No obvious JVD. Respiratory: Lungs are clear to auscultation bilaterally. RR regular and unlabored. Cardiovascular: Regular rate and rhythm with S1-S2. No murmurs, gallops or rubs. NSR/SB on telemetry. Gastrointestinal: Abdomen is soft, obese, nontender, and nondistended with positive bowel sounds. Skin: Warm and dry. No rash or lesions on limited exam. Extremities: No cyanosis, clubbing, or edema. Radial and pedal pulses +2 bilaterally. Neurological: Alert and oriented x4. Cranial nerves 2-12 are grossly intact. No gross focal deficits to casual conversation. Psychiatric: Pleasant and cooperative with normal mood and affect. Objective Data Vital Signs Vital Signs: Vital Signs - 24 hr 08/26/22 20:00 08/26/22 21:21 08/26/22 23:20 Temperature 97 F L Pulse Rate 63 63 56 L Respiratory Rate 22 H 16 15 Blood Pressure 154/96 H Pulse Oximetry 98 100 95 Oxygen Delivery Room Air Autopap 08/26/22 20:00 08/27/22 00:00 08/27/22 04:00 Temperature
[2022-08-27] MEDS: SOTALOL HCL 80 MG TABLET PO ×2 (17:11→22:29)
[2022-08-27] MEDS: FERROUS SULFATE 324 MG TABLET PO (17:11)
[2022-08-28] VITALS: PULSE 57
[2022-08-28 04:00] VITALS: PULSE 59
[2022-08-28 04:54] VITALS: BP 148/77; PULSE 60; RESP 16; TEMP 36.3; O2SAT 100
[2022-08-28 05:20] LABS: Hematocrit 29.3 % (37.0-47.0); Hemoglobin 8.2 g/dL (12.0-15.0); Mean Corpuscular Hemoglobin 20.1 pg (26-34); Mean Platelet Volume 10.2 fl (7.4-10.4); Platelet Count Result 345 k/mm3 (150-375); Red Blood Count 4.07 M/mm3 (4.2-5.4); Red Cell Distribution Width 17.7 % (11.5-14.5)
[2022-08-28 05:26] LABS: Anion Gap 6 mmol/L (8-16); Blood Urea Nitrogen 14 mg/dL (7-17); Calcium 8.5 mg/dL (8.4-10.2); Carbon Dioxide 30 mmol/L (22-30); Chloride 101 mmol/L (98-107); Estimated CRCL calculation 158 ml/min; Estimated Glomerular Filt Rate > 60; Glucose 91 mg/dL (65-110); Potassium 3.6 mmol/L (3.4-5.0); Sodium 137 mmol/L (137-145)
--- NOTE | 2022-08-28 07:44 | PM.PNCARD ---
Progress Note: A&P Assessment and Plan (1) PAF (paroxysmal atrial fibrillation): Code(s): I48.0 - Paroxysmal atrial fibrillation Status: Acute Assessment and Plan: Probably due to untreated JIA. Spontaneously cardioverted. [id number] 2. Negative lexiscan myovew on 10/26/18. 08/25/22 Echo: EF 65-70%, mod LVH, diastolic dysfunction (E/e' 13). On Sotalol 80 mg every 12 hours started on 08/25/22. Check EKG 1-2 hours after each dose of Sotalol to check QT interval which are OK. On Aspirin 325 mg daily. Tolerating Sotalol well. No further cardiac workup. Upon discharge have her f/u with me in 1 week. (2) Microcytic anemia: Code(s): D50.9 - Iron deficiency anemia, unspecified Status: Acute Assessment and Plan: Being worked up by hospitalist. She is going for endoscopy today. (3) Morbid obesity: Code(s): E66.01 - Morbid (severe) obesity due to excess calories Status: Acute (4) Essential hypertension: Code(s): I10 - Essential (primary) hypertension Status: Chronic Assessment and Plan: Started Amlodipine 5 mg daily. (5) Obstructive sleep apnea on CPAP: Code(s): G47.33 - Obstructive sleep apnea (adult) (pediatric); Z99.89 - Dependence on other enabling machines and devices Status: Acute Assessment and Plan: Will need outpatient sleep study. Subjective Date/time seen: 08/28/22 07:44 Interval history: Denies chest pain or sob. Exam Const: General: cooperative, healthy appearing and comfortable Orientation/consciousness: oriented to person, oriented to place and oriented to time Resp: Auscultation: clear to auscultation bilaterally, no crackles, no rales, no rhonchi and no wheezes Cardio: Rate: regular rate Rhythm: regular rhythm Heart sounds: no murmurs Peripheral pulses: dorsalis pedis present Neuro: General: oriented to person, oriented to place and oriented to time Extrem: Right lower extremity: no edema Left lower extremity: no edema Objective Data Vital Signs Vital Signs: Vital Signs - 24 hr 08/27/22 08:00 08/27/22 13:15 08/27/22 14:29 Temperature 97.1 F L Pulse Rate 64 72 Respiratory Rate 19 20 Blood Pressure 157/97 H 134/72 Pulse Oximetry 100 100 Oxygen Delivery Room Air Room Air Room Air 08/27/22 14:39 08/27/22 14:49 08/27/22 08:00 Temperature Pulse Rate 63 64 61 Respiratory Rate 21 H 20 Blood Pressure 146/97 H 168/96 H Pulse Oximetry 100 100 Oxygen Delivery Room Air Room Air 08/27/22 12:00 08/27/22 17:11 08/27/22 21:37 Temperature 97.1 F L Pulse Rate 63 65 71 Respiratory Rate 22 H Blood Pressure 146/83 H Pulse Oximetry 100 Oxygen Delivery 08/27/22 22:29 08/27/22 22:10 08/27/22 20:00 Temperature Pulse Rate 71 68 Respiratory Rate Blood Pressure Pulse Oximetry Oxygen Delivery Room Air 08/28/22 00:00 08/28/22 04:00 08/28/22 04:54 Temperature 97.4 F L Pulse Rate 57 L 59 L 60 Respiratory Rate 16 Blood Pressure 148/77 H Pulse Oximetry 100 Oxygen Delivery 08/27/22 22:45 Temperature Pulse Rate 58 L Respiratory Rate Blood Pressure Pulse Oximetry 97 Oxygen Delivery Autopap Intake/Output Intake/Output: Intake & Output 08/25/22 08/26/22 08/27/22 08/28/22 23:59 23:59 23:59 23:59 Intake Total 440 540 270 100 Balance 440 540 270 100 Meds/Results Medications: Active Medications Generic Name Dose Route Start Last Admin Trade Name Freq PRN Reason Stop Dose Admin Amlodipine Besylate 5 mg 08/28/22 09:00 Amlodipine Besylate [address] [facility] Aspirin 325 mg 08/26/22 09:00 08/26/22 08:43 Aspirin 325 Mg Enteric Tablet PO [address] [facility] Administration Cyanocobalamin 1,000 mcg 08/26/22 09:00 08/27/22 12:18 Cyanocobalamin 1,000 Mcg Tablet PO Not Given [facility] [place] Ferrous Sulfate 324 mg 08/26/22 08:00 08/27/22 12:18 Ferrous Sulfate 324 Mg Tablet PO Not Given DAILY@0800 [facility] Lila
[2022-08-28 08:00] VITALS: PULSE 60; RESP 16; O2SAT 100
--- NOTE | 2022-08-28 08:16 | WPDGIPROGNO ---
Progress Note: A&P Assessment and Plan (1) TAMARA (iron deficiency anemia): Code(s): D50.9 - Iron deficiency anemia, unspecified Status: Acute Assessment and Plan: Patient with iron deficiency anemia. GI workup essentially unremarkable. Small colon polyp was benign in removed at colonoscopy yesterday small-bowel follow-through unremarkable. Suggest iron replacement. Follow-up CBC in a month or 2. (2) Occult blood in stools: Code(s): R19.5 - Other fecal abnormalities Status: Acute Assessment and Plan: Occult blood in stools likely from internal hemorrhoids identified colonoscopy. (3) History of colon polyps: Code(s): Z86.010 - Personal history of colonic polyps Status: Acute Assessment and Plan: Small benign colon polyp identified at endoscopy. Patient should call for histology report in 1 week. Follow-up colonoscopy advised in 5 years. (4) PAF (paroxysmal atrial fibrillation): Code(s): I48.0 - Paroxysmal atrial fibrillation Status: Acute Assessment and Plan: Patient now in sinus rhythm. Followed by primary care service. (5) Morbid obesity: Code(s): E66.01 - Morbid (severe) obesity due to excess calories Status: Acute Assessment and Plan: Weight loss and calorie restriction with increase exercise advised. Subjective Date/time seen: 08/28/22 08:16 Interval history: Patient alert comfortable this morning. Denies abdominal pain. No bleeding reported. Remains in sinus rhythm. Review of Systems Review of Systems: Review of systems noncontributory. Exam Narrative: Physical exam reveals patient be alert. Vital signs stable. HEENT exam is unremarkable. Patient is anicteric. Lungs are clear to auscultation and percussion. Heart is without murmur or extra sounds. Abdomen bowel sounds are present soft nontender with no organomegaly. Modestly obese. Objective Data Vital Signs Vital Signs: Vital Signs - 24 hr 08/27/22 13:15 08/27/22 14:29 08/27/22 14:39 Temperature 97.1 F L Pulse Rate 64 72 63 Respiratory Rate 19 20 21 H Blood Pressure 157/97 H 134/72 146/97 H Pulse Oximetry 100 100 100 Oxygen Delivery Room Air Room Air Room Air 08/27/22 14:49 08/27/22 12:00 08/27/22 17:11 Temperature Pulse Rate 64 63 65 Respiratory Rate 20 Blood Pressure 168/96 H Pulse Oximetry 100 Oxygen Delivery Room Air 08/27/22 21:37 08/27/22 22:29 08/27/22 22:10 Temperature 97.1 F L Pulse Rate 71 71 Respiratory Rate 22 H Blood Pressure 146/83 H Pulse Oximetry 100 Oxygen Delivery Room Air 08/27/22 20:00 08/28/22 00:00 08/28/22 04:00 Temperature Pulse Rate 68 57 L 59 L Respiratory Rate Blood Pressure Pulse Oximetry Oxygen Delivery 08/28/22 04:54 08/27/22 22:45 08/28/22 08:00 Temperature 97.4 F L Pulse Rate 60 58 L 60 Respiratory Rate 16 Blood Pressure 148/77 H Pulse Oximetry 100 97 Oxygen Delivery Autopap 08/28/22 08:00 Temperature Pulse Rate 60 Respiratory Rate 16 Blood Pressure Pulse Oximetry 100 Oxygen Delivery Autopap Intake/Output Intake/Output: Intake & Output 08/25/22 08/26/22 08/27/22 08/28/22 23:59 23:59 23:59 23:59 Intake Total 440 540 270 100 Balance 440 540 270 100 Meds/Results Medications: Active Medications Generic Name Dose Route Start Last Admin Trade Name Freq PRN Reason Stop Dose Admin Amlodipine Besylate 5 mg 08/28/22 09:00 Amlodipine Besylate 5 Mg [facility] [place] Aspirin 325 mg 08/26/22 09:00 08/26/22 08:43 Aspirin 325 Mg Enteric Tablet PO 325 [facility] [place] Administration Cyanocobalamin 1,000 mcg 08/26/22 09:00 08/27/22 12:18 Cyanocobalamin 1,000 Mcg Tablet PO Not Given [facility] Ferrous Sulfate 324 mg 08/26/22 08:00 08/27/22 12:18 Ferrous Sulfate 324 Mg Tablet PO Not Given DAILY@0800 [facility] Ferrous Sulfate 324 mg 08/27/22 17:00 08/27/22 17:11 Ferrous Sulfate 3
[2022-08-28] MEDS: CYANOCOBALAMIN 1,000 MCG TABLET 1000 MCG PO (08:23)
[2022-08-28 08:24] VITALS: PULSE 78
[2022-08-28] MEDS: FERROUS SULFATE 324 MG TABLET PO (08:24)
[2022-08-28] MEDS: SOTALOL HCL 80 MG TABLET PO (08:24)
[2022-08-28] MEDS: amLODIPine BESYLATE 5 MG TABLET PO (09:10)
[2022-08-28 10:44] VITALS: PULSE 64
--- NOTE | 2022-08-28 11:35 | PM.DS ---
DS: Admitting Diagnosis Discharge Date 08/28/2022 Admitting Diagnosis New onset atrial fibrillation Microcytic anemia Essential hypertension Obstructive sleep apnea, h/o DS: Discharge Diagnosis Discharge Diagnosis (1) PAF (paroxysmal atrial fibrillation): Code(s): I48.0 - Paroxysmal atrial fibrillation Status: Acute Assessment and Plan: Likely secondary to untreated JIA. She states she has not had any symptoms (no heavy snoring, paroxysmal nocturnal dyspnea, or hypersomnolence) since losing 150 lb following gastric sleeve in April 2019 nd has not been using her CPAP in the past year. Converted and maintained NSR/SB on telemetry. Cardiology consulted and appreciate recommendations. Sotalol 80 mg PO BID started on 08/25/20. Monitor QTc daily and 466 today 08/26/22 (was 459 on 08/25/22). CHADS-VASc score 1. ASA 325 mg PO daily started, however, was held due to anemia and +FOBT. Colonoscopy and EGD unremarkable. Resume aspirin post-colonoscopy as recommended. (2) Essential hypertension: Code(s): I10 - Essential (primary) hypertension Status: Chronic Assessment and Plan: No longer on medication following weight loss surgery. Blood pressures 139-150/80-90s. Monitor closely and consider resuming antihypertensives if consistently elevated. (3) Obstructive sleep apnea on CPAP: Code(s): G47.33 - Obstructive sleep apnea (adult) (pediatric); Z99.89 - Dependence on other enabling machines and devices Status: Acute Assessment and Plan: No longer wearing CPAP after weight loss surgery at home. Apnea link AHI 70.4 with significant desaturation, with lowest 62%. Discussed results with patient and recommend resuming cpap. She is in the process of referral to a new [employer]. Added auto-titrate cpap overnight while inpatient. Educated to continue pap therapy at home and follow up with PCP (4) TAMARA (iron deficiency anemia): Code(s): D50.9 - Iron deficiency anemia, unspecified Status: Acute Assessment and Plan: Patient denies heavy periods. history of gastric sleeve. Her mother had colorectal cancer at the age 40 without prior colonoscopy performed. No stool changed noted per patient. stool for occult positive. Repeat FOBT x1. Iron studies- serum iron, saturation and ferritin low, TIBC high normal. Started on ferrous sulfate 325 mg PO daily started. GI consulted. EGD unremarkable. Colonoscopy showed few internal hemorrhoids and one polyp that was removed. (5) B12 deficiency anemia: Code(s): D51.9 - Vitamin B12 deficiency anemia, unspecified Status: Acute Assessment and Plan: B12 233. start oral B12 1000 mcg. Secondary to GI surgery presumably. folate within normal limits (6) History of colon polyps: Code(s): Z86.010 - Personal history of colonic polyps Status: Acute Assessment and Plan: 08/27/22 colonoscopy with medium single semipeduncultated polyp in sigmoid colon without bleeding. Hot snare polypectomy performed. Biopsy pending. (7) Occult blood in stools: Code(s): R19.5 - Other fecal abnormalities Status: Acute Assessment and Plan: As above. Likely secondary to hemorrhoids. (8) Morbid obesity: Code(s): E66.01 - Morbid (severe) obesity due to excess calories Status: Chronic Assessment and Plan: BMI 52, continue weight loss measure, s/p gastric sleeve. DS: Summary Hospital Course Reason for hospitalization: New onset atrial fibrillation Hospital Course: This is a pleasant 41-year-old female who presented to the emergency department at the [facility] for evaluation of palpitations. She reported on the morning of admission, at approximately 05:30, she got up to get her children ready for school and noticed that her heart felt like it was racing. She went back to bed and about an hour and half later she got up for the day. She was still not feeling well and
== END 2022-08-28 12:00 | disposition home or self-care (01) | DRG 309 ==
PROVIDERS: Internal Medicine Gastroenterology; Physician Assistant; Admitting Provider Chiropractor; PCP Nurse Practitioner Family; Visit Provider Nurse Practitioner Family
PROC: 0DJ08ZZ Inspection of Upper Intestinal Tract, Via Natural or Artificial Opening Endoscopic (ICD-10-PCS; CPT 43235; principal; 2022-08-27 14:15)
DX: I48.0 Paroxysmal atrial fibrillation (principal); Z68.43 Body mass index [BMI] 50.0-59.9, adult; K64.8 Other hemorrhoids; D12.5 Benign neoplasm of sigmoid colon; G47.33 Obstructive sleep apnea (adult) (pediatric); I10 Essential (primary) hypertension; D50.9 Iron deficiency anemia, unspecified; D51.9 Vitamin B12 deficiency anemia, unspecified; R19.5 Other fecal abnormalities; E66.01 Morbid (severe) obesity due to excess calories; Z86.010 Personal history of colon polyps; Z98.84 Bariatric surgery status; Z90.49 Acquired absence of other specified parts of digestive tract
CPT/HCPCS: 36415; 74250; 80048; 82274; 82607; 82728; 82746; 83540; 83550; 83735; 84439; 85027; 85046; 85610; 85730; 88305; 93005; 94762; 96374; A9270; C8929; C9113; G0378; G0379; J2704; J7120; Q9957